=== PATIENT | male | born 2005 | race Two or more races ===

== ENCOUNTER 2025-04-08 22:20 | Emergency (ER) | payer OTHER ==
[2025-04-08 23:04] VITALS: BP 139/73; PULSE 64; RESP 18; TEMP 98.4; BMI 29.0
== END 2025-04-09 01:28 | disposition home or self-care (01) ==
LOC: FER 22:20
DX: S00.83XA Contusion of other part of head, initial encounter (principal); S10.93XA Contusion of unspecified part of neck, initial encounter; V89.2XXA Person injured in unspecified motor-vehicle accident, traffic, initial encounter; Y92.410 Unspecified street and highway as the place of occurrence of the external cause
CPT/HCPCS: 70450-TC; 70486-TC; 72125-TC; 99284-25